=== PATIENT | male | born 1970 | race Two or more races ===

== ENCOUNTER 2024-06-30 11:43 | Emergency (ER) | payer MEDICAID, SELFPAY ==
[2024-06-30 11:44] VITALS: BMI 29.5
--- NOTE | 2024-06-30 12:32 | PC.NURSE ---
Pt called back. No response x1 @12:28
--- NOTE | 2024-06-30 12:47 | PC.NURSE ---
PT CALLED BACK X2. NO RESPONSE X2 @12:46
--- NOTE | 2024-06-30 13:10 | PC.NURSE ---
called for pt from lobby/outside, no [id number]@ [id number]
== END 2024-06-30 13:25 | disposition left against medical advice (07) ==
LOC: SERX 13:33
PROVIDERS: Emergency Provider Emergency Medicine
DX: Z53.21 Procedure and treatment not carried out due to patient leaving prior to being seen by health care provider (principal)

== ENCOUNTER 2024-07-09 01:24 | Emergency (ER) | payer MEDICAID, SELFPAY ==
[2024-07-09 01:28] VITALS: BMI 29.5
[2024-07-09 01:57] VITALS: BP 207/115; BP 230/123; PULSE 70; RESP 16; TEMP 36.6; O2SAT 98
[2024-07-09 02:29] VITALS: BP 250/123; PULSE 70
[2024-07-09] MEDS: hydrALAZINE HCL 25 MG TABLET 50 MG PO (02:29)
[2024-07-09 03:31] VITALS: BP 187/104; BP 190/108; PULSE 80; RESP 17; O2SAT 97
--- NOTE | 2024-07-09 03:35 | EDNOTE_ITS ---
ED General RME/HPI General Chief complaint: General Adult/Misc Complain Stated complaint: BLOOD PRESSURE MIGHT BE HIGH Time Seen by Provider: 07/09/24 02:14 Arrival date/time: 07/09/24 01:24 53M with history of TIA/CVA, drug use, and HTN presents to ED with elevated BP readings. Patient has been having intermittent dizziness, blurry vision, and HAs for several months since his surgery in February of last year of inguinal hernia repair. Patient came in today because he's had one of those episodes recently. Patient admits he hasn't taken his BP meds recently and came to the ED because he didn't think it would be busy at this time. Patient denies LOC, AMS, seizures, N/V, weakness, and slurred speech. Limitations: no limitations Related Data Previous Rx's ?Medication ?Instructions ?Recorded aspirin 81 mg chewable tablet 81 mg PO QDAY 30 days #3 0 tabs 05/15/23 Allergies Allergy/AdvReac Type Severity Reaction Status Date / Time No Known Allergies Allergy Verified 02/21/24 10:06 Review of Systems Review of Systems Systems Reviewed: All systems reviewed, normal except as documented Constitutional Constitutional: Reports system reviewed and no additional complaints, except as documented, Denies fever(s) and Denies headache(s) ENT Ears, Nose, Mouth, and Throat: Denies disequilibrium and Denies headache(s) Cardiovascular Cardiovascular: Reports system reviewed and no additional complaints, except as documented, Denies chest pain and Denies dyspnea Respiratory Respiratory: Reports system reviewed and no additional complaints, except as documented, Denies cough and Denies dyspnea Gastrointestinal Gastrointestinal: Reports system reviewed and no additional complaints, except as documented, Denies abdominal pain, Denies nausea and Denies vomiting Neurologic Neurologic: Reports system reviewed and no additional complaints, except as documented, Denies confusion, Denies disequilibrium and Denies headache(s) Psychiatric Psychiatric: Denies confusion Past Medical History Past Medical History NEUROLOGIC: Negative Neurological Disorders, Transient Ischemic Attacks (TIA) or Seizures CARDIAC: Positive Cardiac Disorders and Hypertension; Negative Congestive Heart Failure RESPIRATORY: Negative Chronic Obstructive Pulmonary Disease (COPD) or Asthma GASTROINTESTINAL: Negative Gastrointestinal Disorders GENITOURINARY: Negative Genitourinary Disorders, Renal Disease or Inguinal Hernia MUSCULOSKELETAL: Negative Musculoskeletal Disorders ENDOCRINE: Negative Endocrine Disorders, Diabetes Mellitus Type 1 or Diabetes Mellitus Type 2 HEMATOLOGIC: Negative Blood Disorders or Sickle Cell Disease OTHER HISTORY: Positive Hospitalization (rattle snake bite) and Chicken Pox; Negative Autoimmune Disease, Shingles, Blood Transfusions, Blood Transfusion Reaction, Anesthesia Reactions, MRSA or Cancer Family History FAMILY HISTORY: Negative Family Psychiatric Problems, Family Respiratory Disorders, Family Cardiac Disorders, Family Gastrointestinal Problems, Family Cancer, Family Surgery or Family Anesthesia Reaction Surgical History SURGICAL: Negative Endocrine Surgery, Ear Surgery, Abdominal Surgery, Joint Replacement or Mastectomy Social History SMOKING STATUS: Current every day smoker SECOND HAND EXPOSURE: Yes SUBSTANCE USE: marijuana ED Exam General Limitations: Present no limitations General appearance: Present alert and in no apparent distress Head Head exam: Present atraumatic Eye Eye exam: Present normal appearance, PERRL and EOMI ENT ENT exam: Present normal exam, normal oropharynx and mucous membranes moist Neck Neck exam: Present normal inspection, full ROM and trachea midline Chest Chest inspection: Present normal inspection and symmetric chest wall rise Respiratory Respiratory exam: Present normal lung sounds bilaterally Cardiovascular Cardiovascular exam: Present regular rate, normal rhythm and normal heart sounds Abdominal Exam Abdominal exam: Present soft and normal bowel sounds Extremities Exam Extremities exam: Present normal inspection and full ROM Back Exam Back exam: Present normal inspection and full ROM Neurological Exam Neurological exam: Present alert, oriented X3 and CN II-XII intact Psychiatric Psychiatric exam: Present normal affect and normal mood Skin Skin exam: Present warm, dry, intact and normal color Course Course Course Narrative: 53M with history of TIA/CVA, drug use, and HTN presents to ED with elevated BP readings. Patient has been having intermittent dizziness, blurry vision, and HAs for several months since his surgery in February of last year of inguinal hernia repair. Patient came in today because he's had one of those episodes recently. Patient admits he hasn't taken his BP meds recently and came to the ED because he didn't think it would be busy at this time. Patient denies LOC, AMS, seizures, N/V, weakness, and slurred speech. Physical exam reveals normal pupil response and EOM. CN II-XII grossly intact. Gait normal. Speech normal. Patient is afebrile, calm, and alert. 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 Patient states his brother of MS. BP lowered with meds. Edger Hand given including to follow-up with PCP for neurology referral. Quality Measures none Orders Category Date Time Status hydrALAZINE HCL [Apresoline] Med 07/09/24 02:14 Discontinued 50 mg PO X1 ONE Vital Signs Vital signs: Vital Signs Temperature 97.8 F 07/09/24 01:57 Pulse Rate 70 07/09/24 01:57 Respiratory Rate 16 07/09/24 01:57 Blood Pressure 230/123 H 07/09/24 01:57 Pulse Oximetry (%) 98 07/09/24 01:57 Oxygen Delivery Method Room Air 07/09/24 01:57 O2 at 98% on RA and WNLs [facility] Patient data External records reviewed:: [facility] previous records Clinical information provided by:: patient Social determinants that could affect healthcare access:: none Patient has the following chronic illnesses:: TIA/CVA, drug use, and HTN presents to ED with elevated BP readings How is presenting disease/condition affected by chronic disease/condition?: exacerbated by Evaluation data The following diagnostics were reviewed and interpreted by me:: other (specify) (none) Lab and/or radiology exams considered but not ordered:: not ordered Interpretation Summary: n/a Medications Medications considered but not ordered:: ordered Medication administrations:: Medication Administration History Discontinued Medications Hydralazine HCl (Hydralazine Hcl 25 Mg Tablet) 50 mg PO X1 ONE Stop: 07/09/24 02:15 Last Admin: 07/09/24 02:29 Dose: 50 mg Documented By: PHILIPPE valentine Consultations Consultation(s) initiated? (list below): No Diagnosis Differential Diagnosis ED Complaint MDM: CVA/TIA, HTN, MS Most likely diagnosis given after review of the tests above:: HTN Admission Indicated Admission indicated?: not indicated Explain why admission is indicated or not indicated:: outpatient Admission Request Was there a request for admission?: No Disposition Plan Disposition Plan: Discharge Discharge Attestation Discharge Attestation: The patient and all family members were given an opportunity to ask questions and understood the discharge instructions. Discharge instructions specifically effects, indications for sooner follow up or return to the emergency department, and the expected course of current diagnosis. Patient condition: Stable Medical Decision Making Differential Diagnosis Differential Diagnosis: CVA/TIA, HTN, MS Discharge Plan Plan Patient Disposition: HOME (Self Care) Disposition Comment: Stable Prescriptions/Referrals Prescriptions/Med Rec: No Action aspirin 81 mg tablet,chewable 81 mg PO QDAY 30 Days Qty: 30 2RF Referrals: Uvaldo Lincoln MD [Primary Care Provider] - In 1 week Problem List Clinical Impression: Hypertension Patient/Caregiver Discharge Instructions Education Materials: ED Hypertension, Established Additional Instructions: Please follow-up with PCP within 24-48 hours and return immediately if symptoms worsen. Make sure to take your meds. Stop doing drugs. See PCP for referral to neurologist about recent MRI result including demyelinating disease such as MS. Print Language: Gabonese Stand Alone Forms: Patient Portal Info Letter PA/SILAS Supervising Physician HARRIS/SILAS Supervising Physician: Dr. Kincaid
== END 2024-07-09 03:37 | disposition home or self-care (01) ==
PROVIDERS: Emergency Provider Emergency Medicine; PCP Family Medicine
DX: I10 Essential (primary) hypertension (principal); Z86.73 Personal history of transient ischemic attack (TIA), and cerebral infarction without residual deficits
CPT/HCPCS: 99282; A9270

== ENCOUNTER 2024-07-14 01:17 | Emergency (ER) | payer MEDICAID, SELFPAY ==
[2024-07-14 01:22] VITALS: BP 172/97; PULSE 71; RESP 18; TEMP 36.5; O2SAT 95; BMI 29.2
--- NOTE | 2024-07-14 01:28 | XR_ITS ---
Examination: Tibia-Fibula, left , 2 views Technique: Tibia-fibula AP lateral 2 views Date and time of exam: July 14, 2024 at 0032 hours INDICATIONS: Nonhealing ulcer mid anterior lower leg 2 weeks FINDINGS: No fracture. No roya cortical bone destruction No opaque foreign body IMPRESSION: No roya cortical bone destruction
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
[2024-07-14] MEDS: KETOROLAC INJ 60 MG/2 ML VIAL 30 MG IM (01:43)
[2024-07-14] MEDS: cefTRIAXone 1,000 MG, LIDOCAINE 1% 20 ML 2.1 ML IM (01:48)
[2024-07-14 02:27] VITALS: RESP 18
== END 2024-07-14 02:28 | disposition home or self-care (01) ==
PROVIDERS: Emergency Provider Emergency Medicine; PCP Family Medicine
DX: L03.116 Cellulitis of left lower limb (principal); I10 Essential (primary) hypertension; Z86.73 Personal history of transient ischemic attack (TIA), and cerebral infarction without residual deficits
CPT/HCPCS: 73590; 96372; 99283; J0696; J1885; J3490

== ENCOUNTER 2024-07-18 19:56 | Emergency (ER) | payer MEDICAID, SELFPAY ==
[2024-07-18 19:56] VITALS: BMI 29.5
[2024-07-18 20:20] VITALS: BP 170/86; PULSE 85; RESP 20; TEMP 37.3; O2SAT 95
--- NOTE | 2024-07-19 03:03 | EDNOTE_ITS ---
ED Skin Abcess FB-RME/HPI General Chief complaint: Extremity Injury, Lower Stated complaint: LEFT LEG INJURY NOT GETTING BETTER Time Seen by Provider: 07/18/24 20:30 Arrival date/time: 07/18/24 19:56 53M with history of TIA/CVA, homelessness, drug use, and HTN presents to ED with L lower leg wound check and needing more bandages. Patient was seen several days ago with diagnosis of cellulitis with no osteomyelitis on XR. Patient was discharged with Bactrim and Keflex and states it is getting a little better as he has been taking those ABX. Limitations: no limitations Related Data Previous Rx's ?Medication ?Instructions ?Recorded aspirin 81 mg chewable tablet 81 mg PO QDAY 30 days #3 0 tabs 05/15/23 acetaminophen 325 mg tablet 325 mg PO QID PRN pain #30 tabs 07/14/24 (Tylenol) cephalexin 500 mg capsule 500 mg PO BID cellulitis 10 days 07/14/24 #20 caps ibuprofen 800 mg tablet 800 mg PO Q8H PRN pain #30 t abs 07/14/24 sulfamethoxazole 800 1 tab PO BID 10 days #20 tab s 07/14/24 mg-trimethoprim 160 mg tablet (Bactrim DS) mupirocin 2 % topical ointment 1 applic topical BID #1 5 grams 07/18/24 Allergies Allergy/AdvReac Type Severity Reaction Status Date / Time No Known Allergies Allergy Verified 07/14/24 01:18 Review of Systems Review of Systems Systems Reviewed: All systems reviewed, normal except as documented Constitutional Constitutional: Reports system reviewed and no additional complaints, except as documented, Denies fever(s) and Denies headache(s) ENT Ears, Nose, Mouth, and Throat: Denies disequilibrium and Denies headache(s) Cardiovascular Cardiovascular: Reports system reviewed and no additional complaints, except as documented, Denies chest pain and Denies dyspnea Respiratory Respiratory: Reports system reviewed and no additional complaints, except as documented, Denies cough and Denies dyspnea Gastrointestinal Gastrointestinal: Reports system reviewed and no additional complaints, except as documented, Denies abdominal pain, Denies nausea and Denies vomiting Integumentary/Breasts Skin/Breast: Reports as per HPI and Reports wounds Neurologic Neurologic: Reports system reviewed and no additional complaints, except as documented, Denies confusion, Denies disequilibrium and Denies headache(s) Psychiatric Psychiatric: Denies confusion Past Medical History Past Medical History NEUROLOGIC: Negative Neurological Disorders, Transient Ischemic Attacks (TIA) or Seizures CARDIAC: Positive Cardiac Disorders and Hypertension; Negative Congestive Heart Failure RESPIRATORY: Negative Chronic Obstructive Pulmonary Disease (COPD) or Asthma GASTROINTESTINAL: Negative Gastrointestinal Disorders GENITOURINARY: Negative Genitourinary Disorders, Renal Disease or Inguinal Hernia MUSCULOSKELETAL: Negative Musculoskeletal Disorders ENDOCRINE: Negative Endocrine Disorders, Diabetes Mellitus Type 1 or Diabetes Mellitus Type 2 HEMATOLOGIC: Negative Blood Disorders or Sickle Cell Disease OTHER HISTORY: Positive Hospitalization (rattle snake bite) and Chicken Pox; Negative Autoimmune Disease, Shingles, Blood Transfusions, Blood Transfusion Reaction, Anesthesia Reactions, MRSA or Cancer Family History FAMILY HISTORY: Negative Family Psychiatric Problems, Family Respiratory Disorders, Family Cardiac Disorders, Family Gastrointestinal Problems, Family Cancer, Family Surgery or Family Anesthesia Reaction Surgical History SURGICAL: Negative Endocrine Surgery, Ear Surgery, Abdominal Surgery, Joint Replacement or Mastectomy Social History SMOKING STATUS: Current every day smoker SECOND HAND EXPOSURE: Yes SUBSTANCE USE: marijuana ED Exam General Limitations: Present no limitations General appearance: Present alert and in no apparent distress Head Head exam: Present atraumatic Eye Eye exam: Present normal appearance, PERRL and EOMI ENT ENT exam: Present normal exam, normal oropharynx and mucous membranes moist Neck Neck exam: Present normal inspection, full ROM and trachea midline Chest Chest inspection: Present normal inspection and symmetric chest wall rise Respiratory Respiratory exam: Present normal lung sounds bilaterally Cardiovascular Cardiovascular exam: Present regular rate, normal rhythm and normal heart sounds Abdominal Exam Abdominal exam: Present soft and normal bowel sounds Extremities Exam Extremities exam: Present full ROM Expanded Lower Extremity Exam Lower leg exam: Present full ROM (L open wound) and tenderness Back Exam Back exam: Present normal inspection and full ROM Neurological Exam Neurological exam: Present alert, oriented X3 and CN II-XII intact Psychiatric Psychiatric exam: Present normal affect and normal mood Skin Skin exam: Present warm, dry, intact and normal color Course Quality Measures none Orders Category Date Time Status Wound Care NOW Care 07/18/24 20:30 Completed Vital Signs Vital signs: Vital Signs Temperature 99.2 F 07/18/24 20:20 Pulse Rate 85 07/18/24 20:20 Respiratory Rate 20 07/18/24 20:20 Blood Pressure 170/86 H 07/18/24 20:20 Pulse Oximetry (%) 95 07/18/24 20:20 Oxygen Delivery Method Room Air 07/18/24 20:20 O2 at 95% on RA and WNLs Skin / Abscess / Foreign Body MDM Narrative MDM Narrative:: 53M with history of TIA/CVA, homelessness, drug use, and HTN presents to ED with L lower leg wound check and needing more bandages. Patient was seen several days ago with diagnosis of cellulitis with no osteomyelitis on XR. Patient was discharged with Bactrim and Keflex and states it is getting a little better as he has been taking those ABX. Physical exam reveals open wound with surrounding redness on L lower leg. Some tenderness. Gait normal. Patient is afebrile, calm, and alert. Wound cleaned/irrigated and rebandaged. Additional bandages given. Will prescribe ABX cream for wound changes. Counseled to finish ABX. Wound center contact info also given. Patient data External records reviewed:: [facility] previous records Clinical information provided by:: patient Social determinants that could affect healthcare access:: substance use Patient has the following chronic illnesses:: TIA/CVA, homelessness, drug use, and HTN How is presenting disease/condition affected by chronic disease/condition?: exacerbated by Evaluation data The following diagnostics were reviewed and interpreted by me:: other (specify) (none) Lab and/or radiology exams considered but not ordered:: not ordered Interpretation Summary: n/a Medications / Prescriptions Medications or Prescriptions considered but not ordered:: not ordered Medication administrations:: n/a Consultations Consultation(s) initiated? (list below): No Diagnosis Skin/Abscess Differential Diagnosis: abscess of skin or subcutaneous tissue, viral exanthem, dermatophytosis, urticaria, herpes zoster, allergic reaction to drug, cellulitis, eczema, insect bites, impetigo and contact dermatitis Most likely diagnosis given after review of the tests above:: cellulitis Admission Indicated Admission indicated?: not indicated Admission Request Was there a request for admission?: No Disposition Plan Disposition Plan: Discharge Discharge Attestation Discharge Attestation: The patient and all family members were given an opportunity to ask questions and understood the discharge instructions. Discharge instructions specifically effects, indications for sooner follow up or return to the emergency department, and the expected course of current diagnosis. Patient condition: Stable Discharge Plan Plan Patient Disposition: HOME (Self Care) Disposition Comment: Stable Prescriptions/Referrals Prescriptions/Med Rec: New mupirocin 2 % ointment 1 applic topical BID Qty: 15 0RF No Action aspirin 81 mg tablet,chewable 81 mg PO QDAY 30 Days Qty: 30 2RF sulfamethoxazole-trimethoprim [Bactrim DS] 800-160 mg tablet 1 tab PO BID 10 Days Qty: 20 0RF acetaminophen [Tylenol] 325 mg tablet 325 mg PO QID PRN (Reason: pain) Qty: 30 0RF ibuprofen 800 mg tablet 800 mg PO Q8H PRN (Reason: pain) Qty: 30 0RF cephalexin 500 mg capsule 500 mg PO BID 10 Days Qty: 20 0RF Problem List Clinical Impression: Cellulitis Patient/Caregiver Discharge Instructions Education Materials: ED Cellulitis Additional Instructions: Please follow-up with PCP within 24-48 hours and return immediately if symptoms worsen. Continue taking both ABX. Change dressing daily with given supplies and prescribed cream. Can call Wound Center to see if they can see you: ? Print Language: Upper Sorbian Stand Alone Forms: Patient Portal Info Letter PA/SILAS Supervising Physician HARRIS/SILAS Supervising Physician: Dr. Bowens
== END 2024-07-18 21:10 | disposition home or self-care (01) ==
LOC: SERX 21:01
PROVIDERS: Emergency Provider Emergency Medicine
DX: L03.116 Cellulitis of left lower limb (principal); Z59.00 Homelessness unspecified
CPT/HCPCS: 99282

== ENCOUNTER 2024-07-20 00:42 | Emergency (ER) | payer MEDICAID, SELFPAY ==
[2024-07-20 00:43] VITALS: BMI 29.5
[2024-07-20 01:12] VITALS: BP 155/89; PULSE 67; RESP 18; TEMP 36.6; O2SAT 98
--- NOTE | 2024-07-20 01:18 | PD.EDRME ---
Rapid Medical Screening Exam RME Arrival date/time: 07/20/24 00:42 53 year old male present to ED for c/o of ongoing left lower infection. pain worsen I have greeted and performed a focused initial assessment of this patient. A comprehensive ED assessment and evaluation of the patient, analysis of all test results, and completion of the medical decision making process will be conducted by additional ED providers. Chief Complaint: Extremity Injury, Lower Vital signs: Vital Signs Temperature 97.9 F 07/20/24 01:12 Pulse Rate 67 07/20/24 01:12 Respiratory Rate 18 07/20/24 01:12 Blood Pressure 155/89 H 07/20/24 01:12 Pulse Oximetry (%) 98 07/20/24 01:12 Oxygen Delivery Method Room Air 07/20/24 01:12
== END 2024-07-20 02:10 | disposition left against medical advice (07) ==
PROVIDERS: Emergency Provider Emergency Medicine
DX: S89.92XA Unspecified injury of left lower leg, initial encounter (principal); X58.XXXA Exposure to other specified factors, initial encounter; Z53.29 Procedure and treatment not carried out because of patient's decision for other reasons
CPT/HCPCS: 80053; 83605; 84145; 85025; 85652; 86140; 87040; 99281

== ENCOUNTER 2024-07-24 21:46 | Emergency (ER) | payer MEDICAID, SELFPAY ==
[2024-07-24 21:47] VITALS: BMI 29.5
--- NOTE | 2024-07-24 22:25 | PC.NURSE ---
no answer in lobby when called for vital signs
--- NOTE | 2024-07-24 22:45 | PC.NURSE ---
no answer in lobby when called for vital signs
--- NOTE | 2024-07-24 23:09 | PC.NURSE ---
no answer in lobby when called for vital signs
== END 2024-07-25 00:08 | disposition left against medical advice (07) ==
LOC: SERX 23:14
PROVIDERS: Emergency Provider Emergency Medicine
DX: Z53.21 Procedure and treatment not carried out due to patient leaving prior to being seen by health care provider (principal)
CPT/HCPCS: 99281

== ENCOUNTER 2024-08-22 21:47 | Emergency (ER) | payer MEDICAID, SELFPAY ==
--- NOTE | 2024-08-22 22:31 | PC.NURSE ---
no answer from pt when called for vitals to be taken
== END 2024-08-22 23:25 | disposition left against medical advice (07) ==
LOC: SERX 23:26
PROVIDERS: Emergency Provider Emergency Medicine
DX: Z53.21 Procedure and treatment not carried out due to patient leaving prior to being seen by health care provider (principal)

== ENCOUNTER 2024-09-19 00:45 | Emergency (ER) | payer MEDICAID, SELFPAY ==
[2024-09-19 00:46] VITALS: BMI 29.9
[2024-09-19 00:52] VITALS: BP 199/104; PULSE 64; RESP 18; TEMP 36.6; O2SAT 96
--- NOTE | 2024-09-19 01:46 | PD.EDWOUND ---
ED Wound/Laceration-RME/HPI General Chief Complaint: Wound/Laceration Stated Complaint: WOUND TO LEFT LEG NOT HEALING X 4 MONTHS Time Seen by Provider: 09/19/24 01:12 Arrival date/time: 09/19/24 00:45 53M with history of TIA/CVA, homelessness, drug use, and HTN presents to ED with L lower leg wound check and needing more bandages. Patient is currently on Bactrim and has a wound center appt on Sunday. Limitations: no limitations Related Data Previous Rx's ?Medication ?Instructions ?Recorded aspirin 81 mg chewable tablet 81 mg PO QDAY 30 days #30 tabs 05/15/23 acetaminophen 325 mg tablet 325 mg PO QID PRN pain #30 tabs 07/14/24 (Tylenol) ibuprofen 800 mg tablet 800 mg PO Q8H PRN pain #30 tabs 07/14/24 mupirocin 2 % topical ointment 1 applic topical BID #15 grams 07/18/24 Allergies Allergy/AdvReac Type Severity Reaction Status Date / Time No Known Allergies Allergy Verified 09/19/24 00:48 Review of Systems Review of Systems Systems Reviewed: All systems reviewed, normal except as documented Constitutional Constitutional: Reports system reviewed and no additional complaints, except as documented, Denies fever(s) and Denies headache(s) ENT Ears, Nose, Mouth, and Throat: Denies disequilibrium and Denies headache(s) Cardiovascular Cardiovascular: Reports system reviewed and no additional complaints, except as documented, Denies chest pain and Denies dyspnea Respiratory Respiratory: Reports system reviewed and no additional complaints, except as documented, Denies cough and Denies dyspnea Gastrointestinal Gastrointestinal: Reports system reviewed and no additional complaints, except as documented, Denies abdominal pain, Denies nausea and Denies vomiting Integumentary/Breasts Skin/Breast: Reports as per HPI and Reports skin pain Neurologic Neurologic: Reports system reviewed and no additional complaints, except as documented, Denies confusion, Denies disequilibrium and Denies headache(s) Psychiatric Psychiatric: Denies confusion Past Medical History Past Medical History NEUROLOGIC: Negative Neurological Disorders, Transient Ischemic Attacks (TIA) or Seizures CARDIAC: Positive Cardiac Disorders and Hypertension; Negative Congestive Heart Failure RESPIRATORY: Negative Chronic Obstructive Pulmonary Disease (COPD) or Asthma GASTROINTESTINAL: Negative Gastrointestinal Disorders GENITOURINARY: Negative Genitourinary Disorders, Renal Disease or Inguinal Hernia MUSCULOSKELETAL: Negative Musculoskeletal Disorders ENDOCRINE: Negative Endocrine Disorders, Diabetes Mellitus Type 1 or Diabetes Mellitus Type 2 HEMATOLOGIC: Negative Blood Disorders or Sickle Cell Disease OTHER HISTORY: Positive Hospitalization (rattle snake bite) and Chicken Pox; Negative Autoimmune Disease, Shingles, Blood Transfusions, Blood Transfusion Reaction, Anesthesia Reactions, MRSA or Cancer Family History FAMILY HISTORY: Negative Family Psychiatric Problems, Family Respiratory Disorders, Family Cardiac Disorders, Family Gastrointestinal Problems, Family Cancer, Family Surgery or Family Anesthesia Reaction Surgical History SURGICAL: Negative Endocrine Surgery, Ear Surgery, Abdominal Surgery, Joint Replacement or Mastectomy Social History SMOKING STATUS: Current some day smoker SECOND HAND EXPOSURE: Yes SUBSTANCE USE: marijuana ED Exam General Limitations: Present no limitations General appearance: Present alert and in no apparent distress Head Head exam: Present atraumatic Eye Eye exam: Present normal appearance, PERRL and EOMI ENT ENT exam: Present normal exam, normal oropharynx and mucous membranes moist Neck Neck exam: Present normal inspection, full ROM and trachea midline Chest Chest inspection: Present normal inspection and symmetric chest wall rise Respiratory Respiratory exam: Present normal lung sounds bilaterally Cardiovascular Cardiovascular exam: Present regular rate, normal rhythm and normal heart sounds Abdominal Exam Abdominal exam: Present soft and normal bowel sounds Extremities Exam Extremities exam: Present full ROM Expanded Lower Extremity Exam Lower leg exam: Present full ROM (L open wound), tenderness and erythema Back Exam Back exam: Present normal inspection and full ROM Neurological Exam Neurological exam: Present alert, oriented X3 and CN II-XII intact Psychiatric Psychiatric exam: Present normal affect and normal mood Skin Skin exam: Present warm, dry, intact and normal color Course Quality Measures none Orders Category Date Time Status Wound Care NOW Care 09/19/24 01:13 Active Naproxen [Naprosyn] Med 09/19/24 01:13 Discontinued 500 mg PO X1 ONE Vital Signs Vital signs: Vital Signs Temperature 98 F 09/19/24 00:52 Pulse Rate 64 09/19/24 00:52 Respiratory Rate 18 09/19/24 00:52 Blood Pressure 199/104 H 09/19/24 00:52 Pulse Oximetry (%) 96 09/19/24 00:52 O2 at 96% on RA and WNLs Wound / Laceration MDM Narrative MDM Narrative:: 53M with history of TIA/CVA, homelessness, drug use, and HTN presents to ED with L lower leg wound check and needing more bandages. Patient is currently on Bactrim and has a wound center appt on Sunday. Physical exam reveals open wound with surrounding redness on L lower leg. Some tenderness. Gait normal. Patient is afebrile, calm, and alert. Wound cleaned/irrigated and rebandaged. Additional bandages given. Counseled to finish ABX. Patient data External records reviewed:: [facility] previous records Clinical information provided by:: patient Social determinants that could affect healthcare access:: housing Patient has the following chronic illnesses:: TIA/CVA, homelessness, drug use, and HTN How is presenting disease/condition affected by chronic disease/condition?: exacerbated by Evaluation data The following diagnostics were reviewed and interpreted by me:: other (specify) (none) Lab and/or radiology exams considered but not ordered:: not ordered Interpretation Summary: n/a Medications / Prescriptions Medications or Prescriptions considered but not ordered:: ordered Medication administrations:: Medication Administration History Discontinued Medications Naproxen (Naproxen 250 Mg Tablet) 500 mg PO X1 ONE Stop: 09/19/24 01:14 above Consultations Consultation(s) initiated? (list below): No Diagnosis Wound Differential Diagnosis: laceration, abrasion, avulsion of skin and other (infected wound) Most likely diagnosis given after review of the tests above:: infected wound Admission Indicated Admission indicated?: not indicated Admission Request Was there a request for admission?: No Disposition Plan Disposition Plan: Discharge Discharge Attestation Discharge Attestation: The patient and all family members were given an opportunity to ask questions and understood the discharge instructions. Discharge instructions specifically effects, indications for sooner follow up or return to the emergency department, and the expected course of current diagnosis. Patient condition: Stable Discharge Plan Plan Patient Disposition: HOME (Self Care) Discharge Disposition comment: Stable Prescriptions/Referrals Prescriptions/Med Rec: No Action aspirin 81 mg tablet,chewable 81 mg PO QDAY 30 Days Qty: 30 2RF acetaminophen [Tylenol] 325 mg tablet 325 mg PO QID PRN (Reason: pain) Qty: 30 0RF ibuprofen 800 mg tablet 800 mg PO Q8H PRN (Reason: pain) Qty: 30 0RF mupirocin 2 % ointment 1 applic topical BID Qty: 15 0RF Problem List Clinical Impression: Infected wound Patient/Caregiver Discharge Instructions Education Materials: ED Wound Check (Infection) Additional Instructions: Please follow-up with PCP within 24-48 hours and return immediately if symptoms worsen. Make sure to go to Wound Center appt. Finish ABX. Print Language: Hebrew Stand Alone Forms: Patient Portal Info Letter PA/CEPHALOMETRIC TECHNICIAN Supervising Physician PA/CEPHALOMETRIC TECHNICIAN Supervising Physician: Dr. Marshall
[2024-09-19] MEDS: NAPROXEN 250 MG TABLET 500 MG PO (01:48)
== END 2024-09-19 01:52 | disposition home or self-care (01) ==
LOC: SERX 02:25
PROVIDERS: Emergency Provider Emergency Medicine; PCP Family Medicine
DX: S81.802D Unspecified open wound, left lower leg, subsequent encounter (principal); L08.9 Local infection of the skin and subcutaneous tissue, unspecified; X58.XXXD Exposure to other specified factors, subsequent encounter; Z59.00 Homelessness unspecified
CPT/HCPCS: 99282; A9270

== ENCOUNTER → 2024-09-29 | Outpatient (CLI) | payer MEDICAID, SELFPAY | END | disposition home or self-care (01) | LOC: SWHD 12:55 | PROVIDERS: Visit Provider Student in an Organized Health Care Education/Training Program | DX: E11.621 Type 2 diabetes mellitus with foot ulcer (principal); L97.822 Non-pressure chronic ulcer of other part of left lower leg with fat layer exposed; E11.40 Type 2 diabetes mellitus with diabetic neuropathy, unspecified; G47.30 Sleep apnea, unspecified; I10 Essential (primary) hypertension; F10.90 Alcohol use, unspecified, uncomplicated; Z72.0 Tobacco use; F11.90 Opioid use, unspecified, uncomplicated | CPT/HCPCS: 97597; 99213; A9270; G0463 ==

== ENCOUNTER 2024-10-01 01:41 | Emergency (ER) | payer MEDICAID, SELFPAY ==
[2024-10-01 01:41] VITALS: BP 164/96; PULSE 84; RESP 20; TEMP 36.8; O2SAT 96
[2024-10-01] MEDS: NAPROXEN 250 MG TABLET 500 MG PO (02:33)
--- NOTE | 2024-10-01 03:06 | EDNOTE_ITS ---
<Statement entered by Helene Quintero MD - 10/01/24 18:32> As co-signing physician, I was present and available for consult prn. I concur with the plan and care as documented by the midlevel provider. ED Wound/Laceration-RME/HPI General Chief Complaint: Wound/Laceration Stated Complaint: Wound care yesterday worsening pain today Time Seen by Provider: 10/01/24 02:12 Arrival date/time: 10/01/24 01:41 54M with history of TIA/CVA, homelessness, drug use, and HTN presents to ED with L lower leg wound pain after [facility]aging done [facility] yesterday. Patient has another appointment in 3 days. Limitations: no limitations Related Data Previous Rx's ?Medication ?Instructions ?Recorded aspirin 81 mg chewable tablet 81 mg PO QDAY 30 days #3 0 tabs 05/15/23 acetaminophen 325 mg tablet 325 mg PO QID PRN pain #30 tabs 07/14/24 (Tylenol) ibuprofen 800 mg tablet 800 mg PO Q8H PRN pain #30 t abs 07/14/24 mupirocin 2 % topical ointment 1 applic topical BID #1 5 grams 07/18/24 Allergies Allergy/AdvReac Type Severity Reaction Status Date / Time No Known Allergies Allergy Verified 09/19/24 00:48 Review of Systems Review of Systems Systems Reviewed: All systems reviewed, normal except as documented Constitutional Constitutional: Reports system reviewed and no additional complaints, except as documented, Denies fever(s) and Denies headache(s) ENT Ears, Nose, Mouth, and Throat: Denies disequilibrium and Denies headache(s) Cardiovascular Cardiovascular: Reports system reviewed and no additional complaints, except as documented, Denies chest pain and Denies dyspnea Respiratory Respiratory: Reports system reviewed and no additional complaints, except as documented, Denies cough and Denies dyspnea Gastrointestinal Gastrointestinal: Reports system reviewed and no additional complaints, except as documented, Denies abdominal pain, Denies nausea and Denies vomiting Integumentary/Breasts Skin/Breast: Reports as per HPI and Reports skin pain Neurologic Neurologic: Reports system reviewed and no additional complaints, except as documented, Denies confusion, Denies disequilibrium and Denies headache(s) Psychiatric Psychiatric: Denies confusion Past Medical History Past Medical History NEUROLOGIC: Negative Neurological Disorders, Transient Ischemic Attacks (TIA) or Seizures CARDIAC: Positive Cardiac Disorders and Hypertension; Negative Congestive Heart Failure RESPIRATORY: Negative Chronic Obstructive Pulmonary Disease (COPD) or Asthma GASTROINTESTINAL: Negative Gastrointestinal Disorders GENITOURINARY: Negative Genitourinary Disorders, Renal Disease or Inguinal Hernia MUSCULOSKELETAL: Negative Musculoskeletal Disorders ENDOCRINE: Negative Endocrine Disorders, Diabetes Mellitus Type 1 or Diabetes Mellitus Type 2 HEMATOLOGIC: Negative Blood Disorders or Sickle Cell Disease OTHER HISTORY: Positive Hospitalization (rattle snake bite) and Chicken Pox; Negative Autoimmune Disease, Shingles, Blood Transfusions, Blood Transfusion Reaction, Anesthesia Reactions, MRSA or Cancer Family History FAMILY HISTORY: Negative Family Psychiatric Problems, Family Respiratory Disorders, Family Cardiac Disorders, Family Gastrointestinal Problems, Family Cancer, Family Surgery or Family Anesthesia Reaction Surgical History SURGICAL: Negative Endocrine Surgery, Ear Surgery, Abdominal Surgery, Joint Replacement or Mastectomy Social History SMOKING STATUS: Never smoker SECOND HAND EXPOSURE: Yes SUBSTANCE USE: marijuana ED Exam General Limitations: Present no limitations General appearance: Present alert and in no apparent distress Head Head exam: Present atraumatic Eye Eye exam: Present normal appearance, PERRL and EOMI ENT ENT exam: Present normal exam, normal oropharynx and mucous membranes moist Neck Neck exam: Present normal inspection, full ROM and trachea midline Chest Chest inspection: Present normal inspection and symmetric chest wall rise Respiratory Respiratory exam: Present normal lung sounds bilaterally Cardiovascular Cardiovascular exam: Present regular rate, normal rhythm and normal heart sounds Abdominal Exam Abdominal exam: Present soft and normal bowel sounds Extremities Exam Extremities exam: Present full ROM Expanded Lower Extremity Exam Lower leg exam: Present full ROM and other (wound with gauze over it on L) Back Exam Back exam: Present normal inspection and full ROM Neurological Exam Neurological exam: Present alert, oriented X3 and CN II-XII intact Psychiatric Psychiatric exam: Present normal affect and normal mood Skin Skin exam: Present warm, dry, intact and normal color Course Quality Measures none Orders Category Date Time Status Wound Care NOW Care 10/01/24 02:27 Active Naproxen [Naprosyn] Med 10/01/24 02:13 Discontinued 500 mg PO X1 ONE Vital Signs Vital signs: Vital Signs Temperature 98.2 F 10/01/24 01:41 Pulse Rate 84 10/01/24 01:41 Respiratory Rate 20 10/01/24 01:41 Blood Pressure 164/96 H 10/01/24 01:41 Pulse Oximetry (%) 96 10/01/24 01:41 Oxygen Delivery Method Room Air 10/01/24 01:41 O2 at 96% on RA and WNLs Wound / Laceration MDM Narrative MDM Narrative:: 54M with history of TIA/CVA, homelessness, drug use, and HTN presents to ED with L lower leg wound pain after bandaging done at [facility] yesterday. Patient has another appointment in 3 days. Physical exam reveals bandage over open wound on L lower leg. Patient is afebrile, calm, and alert. Meds and beauty counselor given. Wound reinforced with additional gauze. Patient data External records reviewed:: [facility] previous records Clinical information provided by:: patient Social determinants that could affect healthcare access:: substance use Patient has the following chronic illnesses:: TIA/CVA, homelessness, drug use, and HTN How is presenting disease/condition affected by chronic disease/condition?: exacerbated by Evaluation data The following diagnostics were reviewed and interpreted by me:: other (specify) (none) Lab and/or radiology exams considered but not ordered:: not ordered Interpretation Summary: n/a Medications / Prescriptions Medications or Prescriptions considered but not ordered:: ordered Medication administrations:: Medication Administration History Discontinued Medications Naproxen (Naproxen 250 Mg Tablet) 500 mg PO X1 ONE Stop: 10/01/24 02:14 Last Admin: 10/01/24 02:33 Dose: 500 mg Documented By: SF above Consultations Consultation(s) initiated? (list below): No Diagnosis Wound Differential Diagnosis: laceration, abrasion, avulsion of skin and other (infected wound) Most likely diagnosis given after review of the tests above:: infected wound Admission Indicated Admission indicated?: not indicated Admission Request Was there a request for admission?: No Disposition Plan Disposition Plan: Discharge Discharge Attestation Discharge Attestation: The patient and all family members were given an opportunity to ask questions and understood the discharge instructions. Discharge instructions specifically effects, indications for sooner follow up or return to the emergency department, and the expected course of current diagnosis. Patient condition: Stable Discharge Plan Plan Patient Disposition: HOME (Self Care) Discharge Disposition comment: Stable Prescriptions/Referrals Prescriptions/Med Rec: No Action aspirin 81 mg tablet,chewable 81 mg PO QDAY 30 Days Qty: 30 2RF acetaminophen [Tylenol] 325 mg tablet 325 mg PO QID PRN (Reason: pain) Qty: 30 0RF ibuprofen 800 mg tablet 800 mg PO Q8H PRN (Reason: pain) Qty: 30 0RF mupirocin 2 % ointment 1 applic topical BID Qty: 15 0RF Problem List Clinical Impression: Infected wound Patient/Caregiver Discharge Instructions Additional Instructions: Please follow-up with PCP within 24-48 ours and return immediately if symptoms worsen. Keep going to wound care center and following their instructions including taking the ABX and appropriate wound care. Print Language: Yi Stand Alone Forms: Patient Portal Info Letter HARRIS/SILAS Supervising Physician HARRIS/SILAS Supervising Physician: Dr. Quintero
== END 2024-10-01 02:44 | disposition home or self-care (01) ==
LOC: SERX 02:42
PROVIDERS: Emergency Provider Emergency Medicine; PCP Family Medicine
DX: S81.812A Laceration without foreign body, left lower leg, initial encounter (principal); L08.9 Local infection of the skin and subcutaneous tissue, unspecified; X58.XXXA Exposure to other specified factors, initial encounter; Z59.00 Homelessness unspecified
CPT/HCPCS: 99282; A9270

== ENCOUNTER → 2024-10-03 | Outpatient (CLI) | payer MEDICAID, SELFPAY | END | disposition home or self-care (01) | PROVIDERS: PCP Internal Medicine; Referring Provider Internal Medicine; Visit Provider Surgery | DX: E11.621 Type 2 diabetes mellitus with foot ulcer (principal); L97.822 Non-pressure chronic ulcer of other part of left lower leg with fat layer exposed; E11.40 Type 2 diabetes mellitus with diabetic neuropathy, unspecified; G47.30 Sleep apnea, unspecified; I10 Essential (primary) hypertension; F10.90 Alcohol use, unspecified, uncomplicated; Z72.0 Tobacco use; F11.90 Opioid use, unspecified, uncomplicated | CPT/HCPCS: 29581; A9270 ==

== ENCOUNTER → 2024-10-06 | Outpatient (CLI) | payer MEDICAID, SELFPAY | END | disposition home or self-care (01) | LOC: SWHD 14:26 | PROVIDERS: PCP Internal Medicine; Referring Provider Internal Medicine; Visit Provider Student in an Organized Health Care Education/Training Program | DX: E11.621 Type 2 diabetes mellitus with foot ulcer (principal); L97.822 Non-pressure chronic ulcer of other part of left lower leg with fat layer exposed; E11.40 Type 2 diabetes mellitus with diabetic neuropathy, unspecified; G47.30 Sleep apnea, unspecified; F10.90 Alcohol use, unspecified, uncomplicated; Z72.0 Tobacco use; F11.90 Opioid use, unspecified, uncomplicated; I10 Essential (primary) hypertension | CPT/HCPCS: 29581 ==

== ENCOUNTER → 2024-10-10 | Outpatient (CLI) | payer MEDICAID, SELFPAY | END | disposition home or self-care (01) | PROVIDERS: PCP Internal Medicine; Referring Provider Internal Medicine; Visit Provider Surgery | DX: E11.621 Type 2 diabetes mellitus with foot ulcer (principal); L97.822 Non-pressure chronic ulcer of other part of left lower leg with fat layer exposed; E11.40 Type 2 diabetes mellitus with diabetic neuropathy, unspecified; G47.30 Sleep apnea, unspecified; I10 Essential (primary) hypertension; F10.90 Alcohol use, unspecified, uncomplicated; Z72.0 Tobacco use; F11.90 Opioid use, unspecified, uncomplicated | CPT/HCPCS: 97597; A9270 ==

== ENCOUNTER → 2024-10-13 | Outpatient (CLI) | payer MEDICAID, SELFPAY | END | disposition home or self-care (01) | PROVIDERS: PCP Internal Medicine; Referring Provider Internal Medicine; Visit Provider Student in an Organized Health Care Education/Training Program | DX: E11.621 Type 2 diabetes mellitus with foot ulcer (principal); L97.822 Non-pressure chronic ulcer of other part of left lower leg with fat layer exposed; E11.40 Type 2 diabetes mellitus with diabetic neuropathy, unspecified; G47.30 Sleep apnea, unspecified; I10 Essential (primary) hypertension; F10.90 Alcohol use, unspecified, uncomplicated; Z72.0 Tobacco use; F11.90 Opioid use, unspecified, uncomplicated | CPT/HCPCS: 97597; A9270 ==

== ENCOUNTER → 2024-10-16 | Outpatient (CLI) | payer MEDICAID, SELFPAY | END | disposition home or self-care (01) | LOC: SWHD 12:53 | PROVIDERS: PCP Internal Medicine; Referring Provider Internal Medicine; Visit Provider Student in an Organized Health Care Education/Training Program | DX: E11.621 Type 2 diabetes mellitus with foot ulcer (principal); L97.822 Non-pressure chronic ulcer of other part of left lower leg with fat layer exposed; E11.40 Type 2 diabetes mellitus with diabetic neuropathy, unspecified; G47.30 Sleep apnea, unspecified; I10 Essential (primary) hypertension; F10.90 Alcohol use, unspecified, uncomplicated; Z72.0 Tobacco use; F11.90 Opioid use, unspecified, uncomplicated | CPT/HCPCS: 29581 ==

== ENCOUNTER → 2024-10-20 | Outpatient (CLI) | payer MEDICAID, SELFPAY | END | disposition home or self-care (01) | LOC: SWHD 08:36 | PROVIDERS: PCP Internal Medicine; Referring Provider Internal Medicine; Visit Provider Student in an Organized Health Care Education/Training Program | DX: E11.621 Type 2 diabetes mellitus with foot ulcer (principal); L97.822 Non-pressure chronic ulcer of other part of left lower leg with fat layer exposed; E11.40 Type 2 diabetes mellitus with diabetic neuropathy, unspecified; G47.30 Sleep apnea, unspecified; I10 Essential (primary) hypertension; F10.90 Alcohol use, unspecified, uncomplicated; Z72.0 Tobacco use; F11.90 Opioid use, unspecified, uncomplicated | CPT/HCPCS: 97597; A9270 ==

== ENCOUNTER → 2024-10-27 | Outpatient (CLI) | payer MEDICAID, SELFPAY | END | disposition home or self-care (01) | PROVIDERS: PCP Internal Medicine; Referring Provider Internal Medicine; Visit Provider Student in an Organized Health Care Education/Training Program | DX: E11.621 Type 2 diabetes mellitus with foot ulcer (principal); L97.822 Non-pressure chronic ulcer of other part of left lower leg with fat layer exposed; E11.40 Type 2 diabetes mellitus with diabetic neuropathy, unspecified; G47.30 Sleep apnea, unspecified; I10 Essential (primary) hypertension; F10.90 Alcohol use, unspecified, uncomplicated; F11.90 Opioid use, unspecified, uncomplicated | CPT/HCPCS: 97597; A9270 ==

== ENCOUNTER → 2024-11-03 | Outpatient (CLI) | payer MEDICAID, SELFPAY | END | disposition home or self-care (01) | LOC: SWHD 08:52 | PROVIDERS: PCP Internal Medicine; Referring Provider Internal Medicine; Visit Provider Student in an Organized Health Care Education/Training Program | DX: E11.621 Type 2 diabetes mellitus with foot ulcer (principal); L97.822 Non-pressure chronic ulcer of other part of left lower leg with fat layer exposed; E11.40 Type 2 diabetes mellitus with diabetic neuropathy, unspecified; G47.30 Sleep apnea, unspecified; I10 Essential (primary) hypertension; F10.90 Alcohol use, unspecified, uncomplicated; F11.90 Opioid use, unspecified, uncomplicated | CPT/HCPCS: 97597; A9270 ==

== ENCOUNTER → 2024-11-10 | Outpatient (CLI) | payer MEDICAID, SELFPAY | END | disposition home or self-care (01) | LOC: SWHD 09:20 | PROVIDERS: PCP Internal Medicine; Referring Provider Internal Medicine; Visit Provider Student in an Organized Health Care Education/Training Program | DX: E11.621 Type 2 diabetes mellitus with foot ulcer (principal); L97.822 Non-pressure chronic ulcer of other part of left lower leg with fat layer exposed; E11.40 Type 2 diabetes mellitus with diabetic neuropathy, unspecified; G47.30 Sleep apnea, unspecified; I10 Essential (primary) hypertension; F10.90 Alcohol use, unspecified, uncomplicated; F11.90 Opioid use, unspecified, uncomplicated | CPT/HCPCS: 11042; A9270 ==

== ENCOUNTER → 2024-11-17 | Outpatient (CLI) | payer MEDICAID, SELFPAY | END | disposition home or self-care (01) | PROVIDERS: PCP Internal Medicine; Referring Provider Internal Medicine; Visit Provider Student in an Organized Health Care Education/Training Program | DX: E11.621 Type 2 diabetes mellitus with foot ulcer (principal); L97.822 Non-pressure chronic ulcer of other part of left lower leg with fat layer exposed; E11.40 Type 2 diabetes mellitus with diabetic neuropathy, unspecified; G47.30 Sleep apnea, unspecified; I10 Essential (primary) hypertension; F10.90 Alcohol use, unspecified, uncomplicated; F11.90 Opioid use, unspecified, uncomplicated | CPT/HCPCS: 97597; A9270 ==

== ENCOUNTER → 2024-12-12 | Outpatient (CLI) | payer MEDICAID, SELFPAY | END | disposition home or self-care (01) | LOC: SWHD 09:29 | PROVIDERS: Visit Provider Surgery | DX: E11.621 Type 2 diabetes mellitus with foot ulcer (principal); L97.822 Non-pressure chronic ulcer of other part of left lower leg with fat layer exposed; E11.40 Type 2 diabetes mellitus with diabetic neuropathy, unspecified; G47.30 Sleep apnea, unspecified; I10 Essential (primary) hypertension; F11.90 Opioid use, unspecified, uncomplicated; F10.90 Alcohol use, unspecified, uncomplicated | CPT/HCPCS: 29581; A9270 ==

== ENCOUNTER → 2024-12-19 | Outpatient (CLI) | payer MEDICAID, SELFPAY | END | disposition home or self-care (01) | LOC: SWHD 09:27 | PROVIDERS: PCP Internal Medicine; Referring Provider Internal Medicine; Visit Provider Surgery | DX: E11.621 Type 2 diabetes mellitus with foot ulcer (principal); L97.822 Non-pressure chronic ulcer of other part of left lower leg with fat layer exposed; E11.40 Type 2 diabetes mellitus with diabetic neuropathy, unspecified; F11.90 Opioid use, unspecified, uncomplicated; F10.90 Alcohol use, unspecified, uncomplicated; G47.30 Sleep apnea, unspecified | CPT/HCPCS: 29581; A9270 ==

== ENCOUNTER 2025-02-06 20:32 | Emergency (ER) | payer MEDICAID, SELFPAY ==
[2025-02-06 20:34] VITALS: BMI 32.1
[2025-02-06 20:48] VITALS: BP 211/107; BP 211/116; PULSE 71; RESP 18; TEMP 36.9; O2SAT 96
[2025-02-06 21:03] VITALS: BP 211/107; PULSE 71
--- NOTE | 2025-02-06 21:08 | EDNOTE_ITS ---
ED Skin Abcess FB-RME/HPI General Chief complaint: Wound/Laceration Stated complaint: WOUND TO LEFT LEG NOT HEALING Time Seen by Provider: 02/06/25 21:09 Arrival date/time: 02/06/25 20:32 RME / HPI RME / HPI narrative: See [facility] for Dr. Marshall's HPI Documentation. Related Data Previous Rx's ?Medication ?Instructions ?Recorded aspirin 81 mg chewable tablet 81 mg PO QDAY 30 days #3 0 tabs 05/15/23 acetaminophen 325 mg tablet 325 mg PO QID PRN pain #30 tabs 07/14/24 (Tylenol) ibuprofen 800 mg tablet 800 mg PO Q8H PRN pain #30 t abs 07/14/24 mupirocin 2 % topical ointment 1 applic topical BID #1 5 grams 07/18/24 hydrocodone 5 mg-acetaminophen 325 1 tab PO BID PRN pa in #14 tabs 10/03/24 mg tablet hydrocodone 5 mg-acetaminophen 325 1 tab PO BID PRN pa in #14 tabs 10/10/24 mg tablet hydrocodone 5 mg-acetaminophen 325 1 tab PO BID PRN pa in #14 tabs 10/10/24 mg tablet hydrocodone 5 mg-acetaminophen 325 1 tab PO BID PRN pa in #14 tabs 10/13/24 mg tablet hydrocodone 5 mg-acetaminophen 325 1 tab PO BID PRN pa in #14 tabs 10/13/24 mg tablet hydrocodone 5 mg-acetaminophen 325 1 tab PO QDAY #14 t abs 10/27/24 mg tablet hydrocodone 5 mg-acetaminophen 325 1 tab PO QDAY PRN p ain #7 tabs 11/17/24 mg tablet acetaminophen 300 mg-codeine 30 mg 2 tab PO Q8H PRN pa in #20 tabs 02/06/25 tablet amoxicillin 875 mg-potassium 1 tab PO BID #20 tabs clavulanate 125 mg tablet clindamycin HCl 300 mg capsule 300 mg PO TID 10 days # 30 caps 02/06/25 clonidine HCl 0.1 mg tablet 0.1 mg PO BID #60 tabs Allergies Allergy/AdvReac Type Severity Reaction Status Date / Time No Known Allergies Allergy Verified 02/06/25 20:34 Review of Systems Review of Systems Systems Reviewed: All systems reviewed, normal except as documented Past Medical History Past Medical History CARDIAC: Positive Hypertension OTHER HISTORY: Positive Hospitalization (rattle snake bite) and Chicken Pox Social History SMOKING STATUS: Current every day smoker SECOND HAND EXPOSURE: Yes SUBSTANCE USE: marijuana ED Exam Narrative Physical exam: See [facility] for Dr. Marshall's Physical Exam Documentation. Course Quality Measures none Orders Category Date Time Status EKG (ED ONLY) *Do not use* NOW Care 02/06/25 21:11 Completed Saline [Insert IV] NOW Care 02/06/25 21:10 Completed Straight [In and Out Catheter] X1 Care 02/06/25 21:10 Completed Wound Care [Wound Care] NOW Care 02/06/25 22:49 Completed EKG (ED Only) Stat Exams 02/06/25 21:11 Draft XR tibia fibula LT 2V Stat Exams 02/06/25 21:11 Completed Bilirubin,Direct Stat Lab 02/06/25 21:15 Completed Blood Culture (Lab) Stat Lab 02/06/25 21:15 Received CBC Stat Lab 02/06/25 21:15 Completed CMP [Comprehensive Metabolic Panel] Stat Lab 02/06/25 21:15 Completed CRP [C-Reactive Protein] Stat Lab 02/06/25 21:15 Completed ESR [Sed Rate (ESR)] Stat Lab 02/06/25 21:15 Completed Lactate (Lactic Acid) Stat Lab 02/06/25 21:15 Completed Magnesium Stat Lab 02/06/25 21:15 Completed Procalcitonin Stat Lab 02/06/25 21:15 Completed TSH [Thyroid Stimulating Hormone] Stat Lab 02/06/25 21:15 Completed Troponin I Stat Lab 02/06/25 21:15 Completed UA, C/S IF [Urinalysis, C/S if Indicated] Stat Lab 02/06/25 22:06 Completed Amoxicillin/Pot Clav 875 [Augmentin 875] Med 02/06/25 22:49 Discontinued 1 tab PO X1 ONE Ketorolac Inj [Toradol Inj] Med 02/06/25 21:25 Discontinued 30 mg IVP X1 ONE Metoprolol Tartrate [Lopressor] Med 02/06/25 21:10 Discontinued 50 mg PO X1 ONE Morphine* Inj Med 02/06/25 21:25 Discontinued 2 mg IV X1 ONE Sodium Chloride 0.9% 1000 ml [Ns] 1,000 ml Med 02/06/25 21:11 Discontinued IV 999 mls/hr cloNIDine HCL [Catapres] Med 02/06/25 21:10 Discontinued 0.2 mg PO X1 ONE Vital Signs Vital signs: Vital Signs Temperature 98.4 F 02/06/25 20:48 Pulse Rate 71 02/06/25 20:48 Respiratory Rate 18 02/06/25 20:48 Blood Pressure 211/116 H 02/06/25 20:48 Pulse Oximetry (%) 96 02/06/25 20:48 Oxygen Delivery Method Room Air 02/06/25 20:48 Skin / Abscess / Foreign Body MDM Narrative MDM Narrative:: This section includes all my notes and documentations, including HPI, PE, and ED course. Cesario Marshall MD HPI: 54 y/o male with Hx of HTN and Marijuana Use here with nonhealing wound in the left lower leg for weeks and months. And with high BP. Ran out of his BP medication for several days. No headache or dizziness. No chest pain. No f ever or chills. No other complaints. ROS: All negative except as documented in HPI. Physical Exam: General: Alert and oriented. No acute distress when remaining still. High BP noted. Eyes: Conjunctivae and lids clear. PERRL. EOMI. ENT: No nasal congestion. Neck: Supple. Heart: RRR. Lungs: No respiratory distress. Good air movement. No rhonchi, wheezing, rales. Abdomen: Soft and nontender. Normal bowel sounds. No distension. No rebound or guarding. Back: No CVA tenderness. Skin: Warm and dry. In the left lower leg, there are several ulcerative wounds, varying in size and shape with spreading erythema and edema and calor. Neuro: Alert and oriented X 3. Cranial nerves II to XII grossly normal. No peripheral motor deficits. I reviewed all diagnostic test results: My interpretation of the EKG is: Sinus rhythm (59 bpm) with nonspecific ST-T changes. My interpretation of the Tibia/Fibula x-ray is NAD. Blood tests and urine tests unremarkable. At this point, diagnoses include: Cellulitis of Left Lower Leg Hypertension Treatment here included: Morphine 2 mg IV Lopressor 50 mg orally Toradol 30 mg IV Catapres 0.2 mg orally IVF Recommended outpatient care. Based on my best medical judgment, made decision no further evaluation or treatment indicated at this time. Patient understands and agrees to the discharge instructions customized and printed, see below. Discharge Instructions from Dr. Marshall printed for you: 1. Take Augmentin and clindamycin for your left lower leg infection. 2. We need to lower your BP to prevent heart attacks and strokes. Take Clonidine 0.1 mg pill(s) every 12 hours as needed based on SBP (higher number of BP). SBP > 140, take one pill. SBP > 160, take two pills. SBP > 180, take three pills. SBP > 200, take four pills. 3. See a private doctor on 02/09/2025 for recheck and further care. Ask for help to control your BP better. Ask for help until you are left lower leg infection and open wounds are completely better. Ask for referral to wound care center. 4. Seek immediate medical care with fever, spreading redness, or with any concerns. Cesario Marshall MD Patient data External records reviewed:: [facility] previous records (Reviewed prior ED records from 10/01/24. Patient was seen for Infected wound.) Clinical information provided by:: patient Social determinants that could affect healthcare access:: substance use (Marijuana) Patient has the following chronic illnesses:: HTN How is presenting disease/condition affected by chronic disease/condition?: exacerbated by Evaluation data The following diagnostics were reviewed and interpreted by me:: lab results, radiology exam(s) and EKG tracing(s) (My interpretation of the EKG is: Sinus rhythm (59 bpm) with nonspecific ST-T changes. Cesario Marshall MD) Lab and/or radiology exams considered but not ordered:: None Interpretation Summary: I reviewed all diagnostic test results: My interpretation of the EKG is: Sinus rhythm (59 bpm) with nonspecific ST-T changes. My interpretation of the Tibia/Fibula x-ray is NAD. Blood tests and urine tests unremarkable. Medications / Prescriptions Medications or Prescriptions considered but not ordered:: None Medication administrations:: Medication Administration History Discontinued Medications Amoxicillin/Clavulanate Potassium (Amoxicillin/Pot Clav 875 Tablet) 1 tab PO X1 ONE Stop: 02/06/25 22:50 Last Admin: 02/06/25 23:15 Dose: 1 tab Documented By: TANIYA Clonidine (Clonidine Hcl 0.1 Mg Tablet) 0.2 mg PO X1 ONE Stop: 02/06/25 21:11 Last Admin: 02/06/25 21:28 Dose: 0.2 mg Documented By: TANIYA Sodium Chloride (Ns) 1,000 mls @ 999 mls/hr IV .Q1H1M ONE Stop: 02/06/25 22:11 Last Infusion: 02/06/25 22:30 Dose: Infused Documented By: Admin: 02/06/25 21:27 Dose: 999 mls/hr Documented By: TANIYA Ketorolac Tromethamine (Ketorolac Inj 30 Mg/Ml Vial) 30 mg IVP X1 ONE Stop: 02/06/25 21:26 Last Admin: 02/06/25 21:31 Dose: 30 mg Documented By: TANIYA Metoprolol Tartrate (Metoprolol Tartrate 25 Mg Tablet) 50 mg PO X1 ONE Stop: 02/06/25 21:11 Last Admin: 02/06/25 21:28 Dose: 50 mg Documented By: TANIYA Morphine Sulfate (Morphine Sulf Inj 4 Mg/Ml Vial) 2 mg IV X1 ONE Stop: 02/06/25 21:26 Last Admin: 02/06/25 21:32 Dose: 2 mg Documented By: TANIYA Treatment here included: Morphine 2 mg IV Lopressor 50 mg orally Toradol 30 mg IV Catapres 0.2 mg orally IVF Consultations Consultation(s) initiated? (list below): No Diagnosis Skin/Abscess Differential Diagnosis: abscess of skin or subcutaneous tissue, dermatophytosis, cellulitis, insect bites and contact dermatitis Most likely diagnosis given after review of the tests above:: HTN Cellulitis of Left Lower Leg Admission Indicated Admission indicated?: not indicated Explain why admission is indicated or not indicated:: With significant improvement and no condition needing emergent intervention, there was no indication for admission. Admission Request Was there a request for admission?: No Disposition Plan Disposition Plan: Discharge Discharge Attestation Discharge Attestation: The patient and all family members were given an opportunity to ask questions and understood the discharge instructions. Discharge instructions specifically effects, indications for sooner follow up or return to the emergency department, and the expected course of current diagnosis. Patient condition: Stable Discharge Plan Plan Patient Disposition: HOME (Self Care) Prescriptions/Referrals Prescriptions/Med Rec: New clonidine HCl 0.1 mg tablet 0.1 mg PO BID Qty: 60 0RF clindamycin HCl 300 mg capsule 300 mg PO TID 10 Days Qty: 30 0RF amoxicillin-pot clavulanate 875-125 mg tablet 1 tab PO BID Qty: 20 0RF acetaminophen-codeine 300-30 mg tablet 2 tab PO Q8H MDD 6 PRN (Reason: pain) Qty: 20 0RF No Action aspirin 81 mg tablet,chewable 81 mg PO QDAY 30 Days Qty: 30 2RF hydrocodone-acetaminophen 5-325 mg tablet 1 tab PO BID MDD 10mg hydrocodone PRN (Reason: pain) Qty: 14 0RF hydrocodone-acetaminophen 5-325 mg tablet 1 tab PO BID MDD 10mg hydrocodone PRN (Reason: pain) Qty: 14 0RF acetaminophen [Tylenol] 325 mg tablet 325 mg PO QID PRN (Reason: pain) Qty: 30 0RF ibuprofen 800 mg tablet 800 mg PO Q8H PRN (Reason: pain) Qty: 30 0RF mupirocin 2 % ointment 1 applic topical BID Qty: 15 0RF hydrocodone-acetaminophen 5-325 mg tablet 1 tab PO BID MDD 2 PRN (Reason: pain) Qty: 14 0RF hydrocodone-acetaminophen 5-325 mg tablet 1 tab PO BID MDD 2 PRN (Reason: pain) Qty: 14 0RF hydrocodone-acetaminophen 5-325 mg tablet 1 tab PO BID MDD 2 PRN (Reason: pain) Qty: 14 0RF hydrocodone-acetaminophen 5-325 mg tablet 1 tab PO QDAY MDD 5mg hydrocodone Qty: 14 0RF hydrocodone-acetaminophen 5-325 mg tablet 1 tab PO QDAY MDD 5mg hydrocodone PRN (Reason: pain) Qty: 7 0RF Referrals: No Primary/Family,Physician [Primary Care Provider] - In 1 week Problem List Clinical Impression: Cellulitis of left lower leg, Hypertension Patient/Caregiver Discharge Instructions Discharge Activity: activity as tolerated Education Materials: ED Cellulitis, ED Hypertension, Established Additional Instructions: Discharge Instructions from Dr. Marshall printed for you: 1. Take Augmentin and clindamycin for your left lower leg infection. 2. We need to lower your BP to prevent heart attacks and strokes. Take Clonidine 0.1 mg pill(s) every 12 hours as needed based on SBP (higher number of BP). SBP > 140, take one pill. SBP > 160, take two pills. SBP > 180, take three pills. SBP > 200, take four pills. 3. See a private doctor on 02/09/2025 for recheck and further care. Ask for help to control your BP better. Ask for help until you are left lower leg infection and open wounds are completely better. Ask for referral to wound care center. 4. Seek immediate medical care with fever, spreading redness, or with any concerns. Print Language: Kiswahili Stand Alone Forms: [facility] Award Info., Patient Portal Info Letter
--- NOTE | 2025-02-06 21:11 | XR_ITS ---
Examination: Tibia-Fibula, left, 2 views Technique: Tibia-fibula AP lateral 2 views Date and time of exam: February 06, 2025 2130 hours INDICATIONS: Nonhealing open wound left lower leg beginning 3 weeks ago FINDINGS: No fracture. No cortical bone destruction No opaque foreign body IMPRESSION: No cortical bone destruction or foreign body
--- NOTE | 2025-02-06 21:11 | EKG_ITS ---
[facility] Test Date: 2025-02-06 Pat Name: JOSE PLATA Department: Room: - Gender: Male Back Maker: : [id number] Requested By: Cesario Ramirez Order Number: [id number] Reading MD: Cesario Ramirez Measurements Intervals [place] Rate: 59 P: 27 IN: 212 QRS: 35 QRSD: 89 T: 21 QT: 420 QTc: 417 Interpretive Statements SINUS BRADYCARDIA WITH FIRST DEGREE AV BLOCK POSSIBLE RIGHT VENTRICULAR CONDUCTION DELAY [RSR (QR) IN V1/V2] INFERIOR MYOCARDIAL INFARCTION , PROBABLY OLD [40+ ms Q WAVE AND/OR ST/T ABNORMALITY IN II/aVF] Compared to ECG 02/21/2024 10:58:50 First degree AV block now present Myocardial infarct finding now present Sinus rhythm no longer present Incomplete right bundle-branch block no longer present /store/S0/[id number]/[id number].pdf
[2025-02-06 21:26] LABS: Basophils # (Auto) 0.1 Thou/mm3 (0.0-0.2); Basophils % (Auto) 1 % (0-2.5); Eosinophils # (Auto) 0.2 Thou/mm3 (0.0-0.5); Eosinophils % (Auto) 3 % (0-10); Hematocrit 38.1 % (41.0-53.0); Hemoglobin 13.5 g/dL (13.5-16.0); Immature Granulocytes Auto 0.02 Thou/mm3 (0.00-0.00); Lactate (Lactic Acid) 1.4 mMol/L (0.4-2.0); Lymphocytes # (Auto) 2.0 Thou/mm3 (1.0-4.8); Lymphocytes % (Auto) 24 % (10-50); Mean Corpuscular HGB Conc 35.4 g/dl (31.0-37.0); Mean Corpuscular Hemoglobin 31.5 pg (25.0-35.0); Mean Corpuscular Volume 89 fL (80-100); Monocytes # (Auto) 0.7 Thou/mm3 (0.0-0.8); Monocytes % (Auto) 8 % (0-12); Neutrophils # (Auto) 5.4 Thou/mm3 (1.8-7.7); Neutrophils % (Auto) 65 % (37-80); Nucleated Red Blood Cell # 0.00 Thou/mm3 (0.00-0.00); Nucleated Red Blood Cell % 0 /100 WBC (0); Platelet Count 286 Thou/mm3 (140-440); RDW Standard Deviation 40.6 fL (35.1-43.9); Red Blood Count 4.29 Miln/mm3 (4.50-5.90); White Blood Count 8.3 Thou/mm3 (3.8-10.6)
[2025-02-06] MEDS: SODIUM CHLORIDE 0.9% 1000 ML 1,000 ML 999 ML IV (21:27)
[2025-02-06 21:28] VITALS: BP 204/115; PULSE 66; PULSE 68
[2025-02-06] MEDS: METOPROLOL TARTRATE 25 MG TABLET 50 MG PO (21:28)
[2025-02-06] MEDS: KETOROLAC INJ 30 MG/ML VIAL IVP (21:31)
[2025-02-06] MEDS: MORPHINE SULF INJ 4 MG/ML VIAL 2 MG IV (21:32)
[2025-02-06 21:59] LABS: Alanine Aminotransferase 34 U/L (10-49); Albumin, Serum 4.2 gm/dL (3.5-5.0); Albumin/Globulin Ratio 1.5 (1.2-2.2); Alkaline Phosphatase 106 U/L (46-116); Anion Gap 9 (7-16); Aspartate Amino Transferase 29 U/L (0-34); BUN/Creatinine Ratio 12 Ratio (12-20); Bilirubin,Direct < 0.1 mg/dL (0.0-0.3); Bilirubin,Total 0.2 mg/dL (0.3-1.2); Blood Urea Nitrogen 12 mg/dL (9-23); C-Reactive Protein 1.7 mg/dL (0.0-0.9); Calcium 9.6 mg/dL (8.3-10.6); Calcium (Corrected) 9.6 mg/dL (8.5-10.1); Carbon Dioxide 25.8 mMol/L (20.0-31.0); Chloride 105 mMol/L (98-107); Creatinine (Component) 1.0 mg/dL (0.6-1.3); Estimated Creatinine Clearance 93.9 mL/min (>60); Globulin 2.8 gm/dL (2.3-3.5); Glucose 127 mg/dL (74-106); Magnesium 2.0 mg/dL (1.6-2.6); Osmolality,Calculated 281 (275-295); Potassium 3.6 mMol/L (3.4-5.1); Procalcitonin < 0.04 ng/ml (0.0-0.49); Sodium 140 mMol/L (136-145); Thyroid Stimulating Hormone 1.40 uIU/mL (0.55-4.78); Total Protein 7.0 gm/dL (5.7-8.2); Troponin I < 0.020 ng/mL (0.0-0.045); eGFR > 60 See Note
[2025-02-06 22:12] LABS: Sed Rate (ESR) 5 mm/hr (0-20)
[2025-02-06 22:21] LABS: Collection Type, Urine Clean Catch; Squamous Epithelial Cell,Urine 0 /hpf (0-5)
--- NOTE | 2025-02-06 22:26 | PC.NURSE ---
Patient (PT) is experiencing sinus bradycardia with heart rate between 50-60 bpm. RN assessed PT, and PT denies any symptoms such as dizziness, fatigue, chest pain, or shortness of breath. Provider was notified of the findings and responded, I'm fine with that.
[2025-02-06 22:43] LABS: Amorphous Crystals,Urine Present (Absent); Bilirubin,Urine Negative (Negative); Blood,Urine Trace (Negative); Clarity,Urine Clear (Clear/Hazy); Color,Urine Yellow (Lt Yel-Yel); Culture Indicated,Urine Not Indicated; Glucose, Urine Negative (Negative); Hyaline Casts,Urine < 1 /hpf (0-1); Ketones,Urine Negative (Negative); Leukocyte Esterase,Urine Negative (Negative); Nitrite,Urine Negative (Negative); PH,Urine 6.0 (5.0-7.0); Protein,Urine Trace (Neg - Trace); RBC,Urine 2 /hpf (0-3); Specific Gravity,Urine 1.023 (1.001-1.035); Urobilinogen,Urine Negative mg/dL (0.0-1.0); WBC,Urine 1 /hpf (0-5)
[2025-02-06 23:06] VITALS: BP 165/97; PULSE 55; RESP 17; TEMP 37; O2SAT 96
[2025-02-06] MEDS: AMOXICILLIN/POT CLAV 875 TABLET 1 TAB PO (23:15)
== END 2025-02-06 23:25 | disposition home or self-care (01) ==
PROVIDERS: Emergency Provider Emergency Medicine
DX: L03.116 Cellulitis of left lower limb (principal); I10 Essential (primary) hypertension; Z79.82 Long term (current) use of aspirin
CPT/HCPCS: 36415; 73590; 80053; 81001; 82248; 83605; 83735; 84145; 84443; 84484; 85025; 85652; 86140; 87040; 93005; 99284; J1885; J2270; J7030; A9270

== ENCOUNTER 2025-02-11 11:26 | Emergency (ER) | payer MEDICAID, SELFPAY ==
[2025-02-11 11:57] VITALS: BP 202/121; PULSE 66; RESP 18; TEMP 36.9; O2SAT 97
[2025-02-11 11:58] VITALS: BMI 30.5
[2025-02-11 12:10] VITALS: BP 202/121; PULSE 66
--- NOTE | 2025-02-11 12:39 | EDNOTE_ITS ---
<Statement entered by Helene Quintero MD - 02/14/25 18:00> As co-signing physician, I was present and available for consult prn. I concur with the plan and care as documented by the midlevel provider. ED Skin Abcess FB-RME/HPI General Chief complaint: Skin/Abscess/Foreign Body Stated complaint: Wound to left foot X 3 months Time Seen by Provider: 02/11/25 11:40 Arrival date/time: 02/11/25 11:26 52-year-old male presents emergency department today for complaints of wound to left lower extremity patient does report he has a follow-up reports wound is healing patient requesting course of pain medication and a wound dressing change Limitations: no limitations Related Data Previous Rx's ?Medication ?Instructions ?Recorded aspirin 81 mg chewable tablet 81 mg PO QDAY 30 days #3 0 tabs 05/15/23 acetaminophen 325 mg tablet 325 mg PO QID PRN pain #30 tabs 07/14/24 (Tylenol) ibuprofen 800 mg tablet 800 mg PO Q8H PRN pain #30 t abs 07/14/24 mupirocin 2 % topical ointment 1 applic topical BID #1 5 grams 07/18/24 hydrocodone 5 mg-acetaminophen 325 1 tab PO BID PRN pa in #14 tabs 10/03/24 mg tablet hydrocodone 5 mg-acetaminophen 325 1 tab PO BID PRN pa in #14 tabs 10/10/24 mg tablet hydrocodone 5 mg-acetaminophen 325 1 tab PO BID PRN pa in #14 tabs 10/10/24 mg tablet hydrocodone 5 mg-acetaminophen 325 1 tab PO BID PRN pa in #14 tabs 10/13/24 mg tablet hydrocodone 5 mg-acetaminophen 325 1 tab PO BID PRN pa in #14 tabs 10/13/24 mg tablet hydrocodone 5 mg-acetaminophen 325 1 tab PO QDAY #14 t abs 10/27/24 mg tablet hydrocodone 5 mg-acetaminophen 325 1 tab PO QDAY PRN p ain #7 tabs 11/17/24 mg tablet acetaminophen 300 mg-codeine 30 mg 2 tab PO Q8H PRN pa in #20 tabs 02/06/25 tablet amoxicillin 875 mg-potassium 1 tab PO BID #20 tabs clavulanate 125 mg tablet clindamycin HCl 300 mg capsule 300 mg PO TID 10 days # 30 caps 02/06/25 clonidine HCl 0.1 mg tablet 0.1 mg PO BID #60 tabs hydrocodone 5 mg-acetaminophen 325 1 tab PO BID PRN pa in #6 tabs 02/11/25 mg tablet mupirocin 2 % topical ointment 1 applic topical TID 10 days #22 02/11/25 grams Allergies Allergy/AdvReac Type Severity Reaction Status Date / Time No Known Allergies Allergy Verified 02/11/25 11:29 Review of Systems Review of Systems Systems Reviewed: All systems reviewed, normal except as documented Constitutional Constitutional: Reports system reviewed and no additional complaints, except as documented, Denies fever(s) and Denies headache(s) Eyes Eyes: Reports system reviewed and no additional complaints, except as documented and Denies blurry vision ENT Ears, Nose, Mouth, and Throat: Reports system reviewed and no additional complaints, except as documented, Denies headache(s), Denies nasal congestion and Denies nasal discharge Cardiovascular Cardiovascular: Reports system reviewed and no additional complaints, except as documented, Denies chest pain and Denies dyspnea Respiratory Respiratory: Reports system reviewed and no additional complaints, except as documented, Denies chest congestion, Denies cough and Denies dyspnea Gastrointestinal Gastrointestinal: Reports system reviewed and no additional complaints, except as documented and Denies abdominal pain Integumentary/Breasts Skin/Breast: Reports system reviewed and no additional complaints, except as documented, Denies rash and Reports wounds (Left leg wound) Neurologic Neurologic: Reports system reviewed and no additional complaints, except as documented, Reports as per HPI and Denies headache(s) Past Medical History Past Medical History NEUROLOGIC: Negative Neurological Disorders, Transient Ischemic Attacks (TIA) or Seizures CARDIAC: Positive Cardiac Disorders and Hypertension; Negative Congestive Heart Failure RESPIRATORY: Negative Chronic Obstructive Pulmonary Disease (COPD) or Asthma GASTROINTESTINAL: Negative Gastrointestinal Disorders GENITOURINARY: Negative Genitourinary Disorders, Renal Disease or Inguinal Hernia MUSCULOSKELETAL: Negative Musculoskeletal Disorders ENDOCRINE: Negative Endocrine Disorders, Diabetes Mellitus Type 1 or Diabetes Mellitus Type 2 HEMATOLOGIC: Negative Blood Disorders or Sickle Cell Disease OTHER HISTORY: Positive Hospitalization and Chicken Pox; Negative Autoimmune Disease, Shingles, Blood Transfusions, Blood Transfusion Reaction, Anesthesia Reactions, MRSA or Cancer Family History FAMILY HISTORY: Negative Family Psychiatric Problems, Family Respiratory Disorders, Family Cardiac Disorders, Family Gastrointestinal Problems, Family Cancer, Family Surgery or Family Anesthesia Reaction Surgical History SURGICAL: Negative Endocrine Surgery, Ear Surgery, Abdominal Surgery, Joint Replacement or Mastectomy Social History SMOKING STATUS: Current some day smoker SECOND HAND EXPOSURE: Yes SUBSTANCE USE: marijuana ED Exam General Limitations: Present no limitations General appearance: Present alert and in no apparent distress Head Head exam: Present atraumatic Eye Eye exam: Present normal appearance, PERRL and EOMI ENT ENT exam: Present normal exam, normal oropharynx and mucous membranes moist Neck Neck exam: Present normal inspection, full ROM and trachea midline Chest Chest inspection: Present normal inspection and symmetric chest wall rise Respiratory Respiratory exam: Present normal lung sounds bilaterally Cardiovascular Cardiovascular exam: Present regular rate, normal rhythm and normal heart sounds Abdominal Exam Abdominal exam: Present soft and normal bowel sounds Extremities Exam Extremities exam: Present normal inspection and full ROM Back Exam Back exam: Present normal inspection and full ROM Neurological Exam Neurological exam: Present alert, oriented X3, CN II-XII intact, normal gait and reflexes normal; Absent motor sensory deficit Psychiatric Psychiatric exam: Present normal affect and normal mood Skin Skin exam: Present warm, dry and other (Left leg pain) Course Quality Measures none Orders Category Date Time Status Wound Care NOW Care 02/11/25 11:57 Completed NIFEdipine [Procardia] Med 02/11/25 11:57 Discontinued 20 mg PO X1 ONE Vital Signs Vital signs: Vital Signs Temperature 98.4 F 02/11/25 11:57 Pulse Rate 66 02/11/25 11:57 Respiratory Rate 18 02/11/25 11:57 Blood Pressure 202/121 H 02/11/25 11:57 Pulse Oximetry (%) 97 02/11/25 11:57 Oxygen Delivery Method Room Air 02/11/25 11:57 O2 saturation 97% room air WNL Skin / Abscess / Foreign Body MDM Narrative MDM Narrative:: 52-year-old male presents emergency department today for complaints of wound to left lower extremity patient does report he has a follow-up reports wound is healing patient requesting course of pain medication and a wound dressing change On exam patient well-appearing patient does not appear look toxic acute stress Patient does have wound left lower extremity which he reports is improving the nurse who is on staff today also states the wound is got significantly better since she seen it last Dressing is replaced Incidentally patient noted to be hypertensive patient reports he does not take his medication as prescribed patient given a dose of medication here At time of reevaluation patient's blood pressure has normalized Patient discharged home in no distress to follow-up with primary care doctor in the next 24 to 48 hours and for any worsening symptoms to return to the ER immediately Patient data External records reviewed:: [facility] previous records Clinical information provided by:: patient Social determinants that could affect healthcare access:: none Patient has the following chronic illnesses:: See history How is presenting disease/condition affected by chronic disease/condition?: caused by Evaluation data The following diagnostics were reviewed and interpreted by me:: other (specify) (N/A) Lab and/or radiology exams considered but not ordered:: Considered not indicated Interpretation Summary: Not indicated Medications / Prescriptions Medications or Prescriptions considered but not ordered:: Given Medication administrations:: Medication Administration History Discontinued Medications Nifedipine (Nifedipine 10 Mg Capsule) 20 mg PO X1 ONE Stop: 02/11/25 11:58 Last Admin: 02/11/25 12:10 Dose: 20 mg Documented By: Given Consultations Consultation(s) initiated? (list below): No Diagnosis Skin/Abscess Differential Diagnosis: abscess of skin or subcutaneous tissue and cellulitis Most likely diagnosis given after review of the tests above:: Wound left lower extremity Admission Indicated Admission indicated?: not indicated Admission Request Was there a request for admission?: No Disposition Plan Disposition Plan: Discharge Discharge Attestation Discharge Attestation: The patient and all family members were given an opportunity to ask questions and understood the discharge instructions. Discharge instructions specifically effects, indications for sooner follow up or return to the emergency department, and the expected course of current diagnosis. Patient condition: Stable Discharge Plan Plan Patient Disposition: HOME (Self Care) Discharge Disposition comment: Stable Prescriptions/Referrals Prescriptions/Med Rec: New hydrocodone-acetaminophen 5-325 mg tablet 1 tab PO BID MDD 10 PRN (Reason: pain) Qty: 6 0RF mupirocin 2 % ointment 1 applic topical TID 10 Days Qty: 22 0RF No Action aspirin 81 mg tablet,chewable 81 mg PO QDAY 30 Days Qty: 30 2RF hydrocodone-acetaminophen 5-325 mg tablet 1 tab PO BID MDD 10mg hydrocodone PRN (Reason: pain) Qty: 14 0RF hydrocodone-acetaminophen 5-325 mg tablet 1 tab PO BID MDD 10mg hydrocodone PRN (Reason: pain) Qty: 14 0RF clonidine HCl 0.1 mg tablet 0.1 mg PO BID Qty: 60 0RF clindamycin HCl 300 mg capsule 300 mg PO TID 10 Days Qty: 30 0RF amoxicillin-pot clavulanate 875-125 mg tablet 1 tab PO BID Qty: 20 0RF acetaminophen-codeine 300-30 mg tablet 2 tab PO Q8H MDD 6 PRN (Reason: pain) Qty: 20 0RF acetaminophen [Tylenol] 325 mg tablet 325 mg PO QID PRN (Reason: pain) Qty: 30 0RF ibuprofen 800 mg tablet 800 mg PO Q8H PRN (Reason: pain) Qty: 30 0RF mupirocin 2 % ointment 1 applic topical BID Qty: 15 0RF hydrocodone-acetaminophen 5-325 mg tablet 1 tab PO BID MDD 2 PRN (Reason: pain) Qty: 14 0RF hydrocodone-acetaminophen 5-325 mg tablet 1 tab PO BID MDD 2 PRN (Reason: pain) Qty: 14 0RF hydrocodone-acetaminophen 5-325 mg tablet 1 tab PO BID MDD 2 PRN (Reason: pain) Qty: 14 0RF hydrocodone-acetaminophen 5-325 mg tablet 1 tab PO QDAY MDD 5mg hydrocodone Qty: 14 0RF hydrocodone-acetaminophen 5-325 mg tablet 1 tab PO QDAY MDD 5mg hydrocodone PRN (Reason: pain) Qty: 7 0RF Referrals: No Primary/Family,Physician [Primary Care Provider] - In 1 week Problem List Clinical Impression: Leg wound, left, Asymptomatic hypertension Patient/Caregiver Discharge Instructions Education Materials: ED Skin Avulsion Additional Instructions: Please keep your appointment on Sunday as discussed for worsening symptoms return immediately Take antibiotics as prescribed It is important you take your blood pressure medication Print Language: Amharic Stand Alone Forms: [place] Award Info., Patient Portal Info Letter PA/GROCERY CLERK CHECKING Supervising Physician PA/GROCERY CLERK CHECKING Supervising Physician: Dr. QUINTERO
[2025-02-11 13:04] VITALS: BP 159/90; PULSE 69; RESP 17; O2SAT 96
== END 2025-02-11 13:21 | disposition home or self-care (01) ==
PROVIDERS: Emergency Provider Emergency Medicine
DX: L02.91 Cutaneous abscess, unspecified (principal); I10 Essential (primary) hypertension
CPT/HCPCS: 99282; A9270

== ENCOUNTER 2025-03-31 05:50 | Day surgery (SDC) | payer MEDICAID, SELFPAY ==
--- NOTE | 2025-03-30 07:00 | EKG_ITS ---
[facility] Test Date: 2025-03-30 Pat Name: JOSE PLATA Department: Room: - Gender: Male [facility] 1970 Requested By: Jacqueline Oliva Order Number: [id number] Reading MD: Jacqueline Oliva Measurements Intervals [place] Rate: 55 P: 39 PA: 210 QRS: 3 QRSD: 104 T: 53 QT: 437 QTc: 419 Interpretive Statements SINUS BRADYCARDIA WITH FIRST DEGREE AV BLOCK Compared to ECG 02/06/2025 22:01:48 Myocardial infarct finding no longer present /store/[id number].pdf
[2025-03-30 11:51] VITALS: BMI 31.5
[2025-03-30 13:29] LABS: INR 1.0 (0.9-1.3); Prothrombin Time 10.7 Seconds (9.0-12.2)
[2025-03-30 13:30] LABS: Basophils # (Auto) 0.0 Thou/mm3 (0.0-0.2); Basophils % (Auto) 1 % (0-2.5); Eosinophils # (Auto) 0.2 Thou/mm3 (0.0-0.5); Eosinophils % (Auto) 3 % (0-10); Hematocrit 38.9 % (41.0-53.0); Hemoglobin 13.2 g/dL (13.5-16.0); Immature Granulocytes Auto 0.02 Thou/mm3 (0.00-0.00); Lymphocytes # (Auto) 1.7 Thou/mm3 (1.0-4.8); Lymphocytes % (Auto) 27 % (10-50); Mean Corpuscular HGB Conc 33.9 g/dl (31.0-37.0); Mean Corpuscular Hemoglobin 30.6 pg (25.0-35.0); Mean Corpuscular Volume 90 fL (80-100); Monocytes # (Auto) 0.6 Thou/mm3 (0.0-0.8); Monocytes % (Auto) 9 % (0-12); Neutrophils # (Auto) 3.9 Thou/mm3 (1.8-7.7); Neutrophils % (Auto) 60 % (37-80); Nucleated Red Blood Cell # 0.00 Thou/mm3 (0.00-0.00); Nucleated Red Blood Cell % 0 /100 WBC (0); Platelet Count 280 Thou/mm3 (140-440); RDW Standard Deviation 39.5 fL (35.1-43.9); Red Blood Count 4.32 Miln/mm3 (4.50-5.90); White Blood Count 6.5 Thou/mm3 (3.8-10.6)
[2025-03-30 13:50] LABS: Alanine Aminotransferase 34 U/L (10-49); Albumin, Serum 4.4 gm/dL (3.5-5.0); Albumin/Globulin Ratio 1.5 (1.2-2.2); Alkaline Phosphatase 98 U/L (46-116); Anion Gap 10 (7-16); Aspartate Amino Transferase 23 U/L (0-34); BUN/Creatinine Ratio 23 Ratio (12-20); Bilirubin,Total 0.3 mg/dL (0.3-1.2); Blood Urea Nitrogen 18 mg/dL (9-23); Calcium 9.6 mg/dL (8.3-10.6); Calcium (Corrected) 9.6 mg/dL (8.5-10.1); Carbon Dioxide 26.9 mMol/L (20.0-31.0); Chloride 104 mMol/L (98-107); Creatinine (Component) 0.8 mg/dL (0.6-1.3); Estimated Creatinine Clearance 120.2 mL/min (>60); Globulin 3.0 gm/dL (2.3-3.5); Glucose 119 mg/dL (74-106); Osmolality,Calculated 284 (275-295); Potassium 3.8 mMol/L (3.4-5.1); Sodium 141 mMol/L (136-145); Total Protein 7.4 gm/dL (5.7-8.2); eGFR > 60 See Note
[2025-03-31] VITALS (7 sets, daily range): BP systolic 117–133; BP diastolic 72–82; PULSE 57–70; RESP 13–21; TEMP 36.7–37.1; O2SAT 94–100; BMI 31.8
--- NOTE | 2025-03-31 07:35 | CHAP ---
Visited with patient giving encouragement and prayer before procedure.
--- NOTE | 2025-03-31 11:37 | ESOP_ITS ---
Date of Procedure 03/31/25 Pre Op Diagnosis Incarcerated right inguinal hernia Post Op Diagnosis Incarcerated indirect right inguinal hernia Procedure Repair of incarcerated right inguinal hernia with mesh Findings Indirect right inguinal hernia with incarcerated small bowel Procedure Description Patient brought into the operating room in supine position. After administration of general endotracheal anesthesia, patient's right groin was shaved, prepped and draped in standard surgical manner. The right inguinal crease was anesthetized with half percent Marcaine. An approximately 6 cm incision was made and dissection was carried to subcutaneous tissue. The Daniel's fascia was divided and the external oblique aponeurosis was opened towards the external ring. The hernia sac and the spermatic cord structures were from the posterior aspect of the external oblique aponeurosis at the level of pubic tubercle. The hernia sac was then meticulously dissected off the spermatic cord structures at the level of internal ring. The hernia sac was opened and the contents that were incarcerated small bowel, reduced. The hernia sac was then ligated at the level of internal ring. The floor of inguinal canal was then reconstructed with ultra Pro proceed mesh. The mesh was secured with running 2-0 Prolene suture. The mesh secured medially to the pubic tubercle, superiorly into the conjoin tendon, inferiorly and to the shelving edge of inguinal ligament, the mesh was placed around the cord structures and tacked under the external oblique aponeurosis laterally. The area was copiously and thoroughly washed and irrigated, all the fluids were suctioned and the suction fluid returned clear. Hemostasis was adequate and satisfactory. External oblique aponeurosis was closed with running 2-0 Vicryl suture, and Daniel's fascia was closed with interrupted suture using 3-0 Vicryl. The incision was closed with 4-0 Monocryl in subcutaneous fashion. Instruments, needles and sponge counts were reported to be correct ?2. Patient tolerated the procedure well. He was extubated, breathing spontaneously and without difficulty and was transferred to postanesthesia care in stable condition. Anesthesia GETA and local Pathology / specimen Other (Hernia sac) Estimated Blood Loss 15 Condition Stable Disposition PACU Surgeon Jacqueline Oliva MD Surgical Staff Operation Date: 03/31/25 10:45 Case Staff [employer]IN[employer]ING LATHE OPERATOR: Vernell Arias RN First Assistant: Bettie Cochran
--- NOTE | 2025-03-31 11:39 | SUR.PHASEI ---
Pt. arrived to recovery via gurney, eyes closed, VSS, no c/o pain or nausea at this time, pt. allowed to sleep, responds to verbal commands, lung sounds clear, diminished at bases, pt. receiving 8 liters 02 via oxymask, dressing to right groin, sutures, 4x4 gauze, mediport tape intact, no active bleeding or redness at this time. Report received from Vernell WANG and Roxi FRANCOIS.
--- NOTE | 2025-03-31 12:43 | SUR.PHASEII ---
1243 Patient meets discharge criteria from recovery, awake and alert, breathing unlabored, vital signs stable, denies pain and nausea, dressing intact; no bleeding noted-abdominal binder applied to patient per MD order, discharge instructions given to patient and patients , signed discharge instructions. Patient given all his belongings prior to discharge, transported via wheelchair and left in a private vehicle.
== END 2025-03-31 12:43 | disposition home or self-care (01) ==
PROVIDERS: Anesthesiology; PCP Family Medicine; Referring Provider Surgery; Visit Provider Surgery
PROC: (CPT 49507; principal; 2025-03-31 10:30)
DX: K40.30 Unilateral inguinal hernia, with obstruction, without gangrene, not specified as recurrent (principal); Z01.810 Encounter for preprocedural cardiovascular examination; I10 Essential (primary) hypertension; Z79.899 Other long term (current) drug therapy
CPT/HCPCS: 49507; 36415; 80053; 85025; 85610; 93005; A4217; A4649; C1781; J0131; J0690; J1100; J2405; J2704; J3010; J3490